=== PATIENT | female | born 1995 | race Caucasian/White ===

== ENCOUNTER 2020-10-19 18:51 | Inpatient (IN) | payer OTHER, SELFPAY ==
[2020-10-19 18:57] VITALS: BP 138/85; PULSE 84; RESP 16; TEMP 36.8; O2SAT 96; BMI 42.0
--- NOTE | 2020-10-19 21:32 | ED_ITS ---
HPI - Psych General Chief Complaint: Psychiatric Symptoms Stated Complaint: crisis Time Seen by Provider: 10/19/20 21:28 Source: patient Mode of arrival: EMS Limitations: no limitations History of Present Illness HPI Narrative: Patient comes to the emergency room from a partial program. It was recommended that the patient comes to the emergency room for further evaluation. Patient states that she has had suicidal thoughts of her life but lately they have been intensifying. Patient states that she does not have a specific plan but has had thought of multiple ways of hurting herself. Patient also states that she needs some medication adjustment, recently started on buspirone. Patient states that the psychiatrist at the partial hospitalization program did not feel comfortable changing her medications. Patient states that things at her home are not good and it is not safe for her to return home MD complaint: suicidal ideation and feels depressed Related Data Allergies Allergy/AdvReac Type Severity Reaction Status Date / Time ibuprofen Allergy Abdominal Verified 10/19/20 18:56 Pain Latex, Natural Rubber Allergy Rash Verified 10/19/20 18:56 fresh fruits Allergy Itching Uncoded 10/19/20 18:56 Review of Systems Review of Systems: Constitutional : No Weight loss, No Fever, No Chills, No Night Sweats, No Fatigue, No Malaise ENT/Mouth : No Hearing loss, No Ear Pain, No Nasal Congestion, No Sinus Pain, No Hoarseness, No sore throat, No Rhinorrhea, No Swallowing Difficulty Eyes: No Eye Pain, No Swelling, No Redness, No Foreign Body, No Discharge, No Vision Changes Cardiovascular : No Chest Pain, No SOB, No Dyspnea on Exertion, No Orthopnea, No Edema, No Palpitations Respiratory : No Cough, No Sputum, No Wheezing, No Smoke Exposure, No Dyspnea Gastrointestinal : No Nausea, No Vomiting, No Diarrhea, No Constipation, No abdominal Pain, No Hematochezia, No Melena Genitourinary : no irregular bleeding, No Dysuria, No Urinary Frequency, No Hematuria, No Urinary Incontinence, No Urgency, No Flank Pain, No Urinary Flow Changes, No Hesitancy Musculoskeletal : No joint pain, No Myalgias, No Joint Swelling Skin : No Skin Lesions, No rash Neuro : No Weakness, No Numbness, No Paresthesias, No Loss of Consciousness, No Dizziness, No Headache Psych : No anxiety, complaining of depression and suicidal ideation, unable to return home due to home situation. Heme/Lymph: No Bruising, No Bleeding,No Lymphadenopathy Endocrine : No Polyuria, No Polydipsia, No Temperature Intolerance [facility] Past Medical History Medical History (Updated 10/19/20 @ 21:34 by Tamy Martinez MD) Asthma Depression Leigh-Danlos disease Social History Social History Alcohol intake: never Smoking Status: Current every day smoker Smoked in Last 30 Days: Yes Use of substances other than those prescribed or required for medical reasons: Yes Substance Use Type: Painkillers and Prescription Drugs Substance Use Type Other:: oxycodone (7 years ago) Advance Directives: No Advance Directives Information Provided: No Physical Exam Vital Signs: Vital Signs: Last Vital Signs Temp 98.3 F 10/19/20 18:57 Pulse 84 10/19/20 18:57 Resp 16 10/19/20 18:57 BP 138/85 10/19/20 18:57 Pulse Ox 96 10/19/20 18:57 Body Mass Index 42.0 Appearance: Alert. Oriented X3. No acute distress. Calm, cooperative Eyes: Pupils equal, round and reactive to light. ENT: Pharynx normal. Neck: Normal inspection. Neck supple. No lymph nodes noted. No crepitus CVS: Normal heart rate and rhythm. Pulses normal. Normal S1 and S2 Respiratory: No respiratory distress. Breath sounds normal. No Wheezing. No rales Abdomen: Soft and nontender. No rigidity. No distention. good BS x4 Skin: Skin warm and dry. Normal skin color. Normal skin turgor. Extremities: No lower extremity edema. No lower extremity edema. No Lacerations. No Rash Neuro: Oriented X 3. No motor deficit. No sensory deficit. Moving all extermities. No slurred speech. Psych: Normal speech, calm, cooperative
--- NOTE | 2020-10-19 22:01 | PC.NURSE ---
bio medical technician to obtain UA.
[2020-10-19 22:35] LABS: Glucose Urine UA NEG (NEG); Leukocyte Esterase Urine NEG (NEG); Nitrite Urine NEG (NEG); Specific Gravity - Urine 1.025 (1.005-1.025); UPreg QC Valid YES; Urine Blood NEG (NEG); Urine Ketones 5 MG/DL (NEG); Urine Pregnancy NEGATIVE (NEGATIVE); Urine Protein NEG (NEG-TRACE)
[2020-10-19 22:36] LABS: Appearance Urine CLEAR; Color Urine YELLOW
--- NOTE | 2020-10-19 23:27 | MHC.CARE ---
CARE Team completes evaluation, with dispo for sect 12 bedsearch. Pt is non binary and goes by Cordell, using they/them pronouns. Full assessment to follow.
[2020-10-19 23:28] LABS: Amphetamine Screen Urine Not Detected (Not Detect); Barbiturates, Urine Not Detected (Not Detect); Benzodiazepines Screen Urine Not Detected (Not Detect); Cannabinoid Screen Urine POSITIVE (Not Detect); Cocaine Screen Urine Not Detected (Not Detect); Opiate Screen Urine Not Detected (Not Detect); Phencyclidine Screen Urine Not Detected (Not Detect)
[2020-10-19] MEDS: hydrOXYzine HCL 50 MG TABLET PO (23:41)
[2020-10-20 00:15] VITALS: BP 112/73; PULSE 81; RESP 16; TEMP 36.2; O2SAT 97
--- NOTE | 2020-10-20 00:41 | PC.NURSE ---
Patient just got transferred from main ED, gait intact, no distress reported, calm and pleasant, med rec completed by discussing with patient, compliant with covid swab/pending result, patient snacked and refreshed with drink, will continue to monitor.
[2020-10-20 00:42] LABS: COVID-19 Test Negative (Negative)
--- NOTE | 2020-10-20 07:13 | PC.NURSE ---
Report received from Arcenio RN- Pt resting, resp unlabored.
--- NOTE | 2020-10-20 10:19 | PC.NURSE ---
Pt resting, resp unlabored.
--- NOTE | 2020-10-20 10:31 | P.CNPS_ITS ---
History of Present Illness Date of Service: 10/20/20 Chief Complaint: crisis Reason for Consult: assess need for Lamictal Requesting physician: Tamy Martinez Discussed with referring provider: No Sources of Information: patient interviewed and chart reviewed HPI Narrative: Pt prefers to be called Jonathon and goes by pro-noun they. Station Supervisor consulted to assess need for Lamictal Pt reports not taking Lamictal for past 5 days. Jonathon reports taking this medication at 200mg for past year and that it has been only minimally effective. While they has some ambivalence about restarting this med, Jonathon They is pretty sure it should be discontinued. Jonathon reports they presented to ED for help with medication change in safe environment. Station Supervisor reviewed risks/side-effects of Lamictal, including SJ and need for controlled titration if been off med for 2 days; patient knows and understands risk and does not want to restart Lamictal at this time. Medical Evaluation Reviewed: Yes [facility] Medical History (Updated 10/19/20 @ 21:34 by Tamy Martinez MD) Asthma Depression Leigh-Danlos disease Diagnostics Vital Signs (24Hr): Vital Signs - 24 hr 10/19/20 18:57 10/20/20 00:15 Temperature 98.3 F 97.2 F Pulse Rate 84 81 Respiratory Rate 16 16 Blood Pressure 138/85 112/73 Pulse Oximetry 96 97 Body Mass Index 42.0 Labs Results: 10/20/20 10:57 10/20/20 10:57 Labs: Laboratory Results - last 48 hr 10/19/20 10/19/20 10/19/20 22:02 22:02 22:02 Urine Color YELLOW Urine Appearance CLEAR Urine pH 7.0 Ur Specific [place] 1.025 Urine Protein NEG Urine Glucose (UA) NEG Urine Ketones 5 Urine Blood NEG Urine Nitrite NEG Ur Leukocyte Esterase NEG Urine Test NEGATIVE Urine Opiates Screen Not Detected Ur Barbiturates Screen Not Detected Ur Phencyclidine Scrn Not Detected Ur Amphetamines Screen Not Detected U Benzodiazepines Scrn Not Detected Urine Cocaine Screen Not Detected U Marijuana (THC) Screen POSITIVE H COVID-19 ([facility]) COVID-19 Clin Com 10/20/20 00:00 Urine Color Urine Appearance Urine pH Ur Specific [place] Urine Protein Urine Glucose (UA) Urine Ketones Urine Blood Urine Nitrite Ur Leukocyte Esterase Urine Test Urine Opiates Screen Ur Barbiturates Screen Ur Phencyclidine Scrn Ur Amphetamines Screen U Benzodiazepines Scrn Urine Cocaine Screen U Marijuana (THC) Screen COVID-19 ([facility]) Negative COVID-19 Clin Com See Note Mental Status Exam Mental Status Exam Patient Appearance: Unkempt (however, just waking up from sleep) Patient Orientation: Person, Place, Time and Situation Level of Consciousness: Awake and Appropriate Patient Behavior: Appropriate and Good Eye Contact Mood Description: Depressed Affect Description: Calm Ability to Follow Directions: Fair Speech Pattern: Clear and Appropriate Thought Process: Intact and Linear Thought Content: positive for Intact Judgement: Fair Medications Medications Current Medications Generic Name Dose Route Start Last Admin Trade Name Freq PRN Reason Stop Dose Admin Lorazepam 2 mg 10/20/20 08:45 Lorazepam 1 Mg Tablet PO Q6H PRN anxiety Allergies Allergies Allergy/AdvReac Type Severity Reaction Status Date / Time ibuprofen Allergy Abdominal Verified 10/19/20 18:56 Pain Latex, Natural Rubber Allergy Rash Verified 10/19/20 18:56 fresh fruits Allergy Itching Uncoded 10/19/20 18:56 Assessment & Plan Impression Pt is a 25 yo person, who goes by name of Jonathon and uses pronoun they Pt has hx of depression and presents for medication change in safe environment having been off Lamictal for 5 days. Patient has some ambivalence about restarting this med but does not want to restart it at this time. Given that Lamictal requires a prolonged titration, fha underwriter agrees that it is best to leave it discontinued for now and allow patient more time to discuss this further with her primary team. dx: MDD Plan: Discontinue Lamictal Greater than 50% of the session was spent on counseling and/or coordination of care
[2020-10-20 11:05] LABS: MANUAL DIFF FLAG NO
[2020-10-20 11:12] LABS: Basophils Percent Auto 0.5 % (0-2); Eosinophils Absolute Auto 0.1 X10*3/uL (0.0-0.4); Hematocrit 40.5 % (37-47); Hemoglobin 13.5 g/dl (12.0-16.0); Imm Gran Abs Auto 0.02 X10*3/uL (0.00-0.03); Imm Gran Pct Auto 0.3 % (0.0-0.4); Lymphocytes Absolute Auto 2.1 X10*3/uL (1.2-4.9); Lymphocytes Percent Auto 32.9 % (20-40); Mean Corpuscular HGB Conc 33.3 g/dl (31.0-35.0); Mean Corpuscular Hemoglobin 28.4 pg (27.0-33.0); Mean Corpuscular Volume 85.1 fL (80-98); Mean Platelet Volume 9.8 fL (9.4-12.3); Monocytes Absolute Auto 0.4 X10*3/uL (0.1-1.2); Monocytes Percent Auto 6.5 % (2-11); Neutrophils Absolute Auto 3.7 X10*3/uL (2.0-8.3); Neutrophils Percent Auto 57.8 % (45-73); Platelet Count 343 X10*3/uL (160-400); Red Blood Count 4.76 X10*6/uL (4.20-5.50); Red Cell Distribution Width 12.5 % (11.0-16.0); White Blood Count 6.4 X10*3/uL (4.8-10.8)
[2020-10-20 11:40] LABS: Ethanol < 10 mg/dL
[2020-10-20 11:41] LABS: Alanine Aminotransferase 19 U/L (0-31); Albumin Level 3.9 g/dL (3.5-5.0); Alkaline Phosphatase 70 U/L (39-117); Anion Gap 12 (12-20); Aspartate Amino Transferase 15 U/L (5-31); Bilirubin Total < 0.2 mg/dL (0.0-1.0); Blood Urea Nitrogen 12 mg/dL (9-16); Calcium 8.7 mg/dL (8.4-10.2); Carbon Dioxide 24 mmol/L (22-29); Chloride 108 mmol/L (96-108); Creatinine Clr Calc Pharmacy 174.9; Estimated Glomerular Filt Rate > 60; Glucose Random 109 mg/dL (60-115); Potassium 3.8 mmol/L (3.3-5.1); Sodium 140 mmol/L (135-145); Total Protein 6.3 g/dL (6.5-8.0)
[2020-10-20 11:52] LABS: Acetaminophen LAB < 1 mcg/mL (<30); Salicylate < 5.0 mg/dL (15-30)
--- NOTE | 2020-10-20 11:52 | PC.NURSE ---
Pt resting currently- awakened for labs, cooperative w/ care, unsure at this time how she is feeling emotionally, no concerns reported.
[2020-10-20 14:04] VITALS: BP 130/63; PULSE 89; RESP 20; TEMP 36.4; O2SAT 97
--- NOTE | 2020-10-20 14:28 | PC.NURSE ---
Report given to FAM Buckner on [facility]
--- NOTE | 2020-10-20 16:21 | PC.NURSE ---
Pt resting, resp unlabored.
--- NOTE | 2020-10-20 17:45 | PC.NURSE ---
Pt aware that they will be transferred to [facility] shortly, CARE team in to initiate process.
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
[2020-10-20 20:15] VITALS: BP 120/63; PULSE 81; RESP 16; TEMP 36.4; O2SAT 98
[2020-10-20] MEDS: busPIRone HCl 5 MG TABLET 7.5 MG PO (20:59)
[2020-10-20] MEDS: hydrOXYzine HCL 25 MG TABLET PO (21:38)
[2020-10-21 06:00] VITALS: BP 115/53; PULSE 70; RESP 18; TEMP 36.4; O2SAT 97
[2020-10-21] MEDS: busPIRone HCl 5 MG TABLET 7.5 MG PO ×2 (09:52→20:37)
[2020-10-21 17:25] LABS: Cholesterol 178 mg/dL; HDL Cholesterol 43 mg/dL; LDL Cholesterol Calculated 113 mg/dl; Triglycerides 113 mg/dL
[2020-10-21 17:42] LABS: Estimated Average Glucose 94 mg/dL; Hemoglobin A1c % 4.9 %
[2020-10-21 17:46] LABS: Thyroid Stimulating Hormone 0.96 uIU/mL (0.32-4.0)
[2020-10-21 19:25] VITALS: BP 116/62; PULSE 76; TEMP 36.6
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
[2020-10-21] MEDS: OLANZapine 5 MG TABLET PO (20:37)
[2020-10-21] MEDS: Lithium Carbonate 300 MG CAPSULE PO (20:43)
[2020-10-21] MEDS: hydrOXYzine HCL 25 MG TABLET PO (22:21)
--- NOTE | 2020-10-22 00:19 | PC.NURSE ---
Orthostatic blood pressure done at 1630: Laying: BP 130/64, P 75 Sitting: BP 137/71, P 75 Standing: BP 133/69, P 103 Pt said experienced no dizziness during assessment. Pt rcvd education about taking more time with positional changes if experiencing dizziness.
[2020-10-22 06:35] VITALS: BP 116/57; PULSE 59; RESP 18; TEMP 37.1; O2SAT 96
[2020-10-22] MEDS: busPIRone HCl 5 MG TABLET 7.5 MG PO ×2 (09:34→21:38)
[2020-10-22 16:25] VITALS: BP 115/55; PULSE 74; TEMP 36.8
--- NOTE | 2020-10-22 19:30 | HO.PSYCHPN ---
Subjective Subjective Date of Service: 10/22/20 Reason For Visit: Bipolar disorder Subjective Notes: Conditional Voluntary Interim History: Pt not available today on rounds. Tolerated initial dosing of [place], Olanzapine which she chose secondary to evidence of efficacy. Serious about this treatment intervention. Medication Compliance: Yes Side effects from medications: No Attending Groups: Yes Review of Systems Review of Systems Yes all other systems are reviewed and are negative Reports behavioral changes Psychiatric: Reports behavioral changes, Reports depression, Reports mood swings and Reports suicidal ideation Mental Status Exam Mental Status Exam Patient Appearance: Appropriate Patient Orientation: Person, Place, Time and Situation Level of Consciousness: Alert Patient Behavior: Appropriate and Guarded Mood Description: Depressed and Anxious Affect Description: Flat Patient Cognition Impaired: No Ability to Follow Directions: Good Speech Pattern: Spontaneous Speech Memory Description: Intact Hallucinations: None Delusions: Not Present Thought Process: Intact Thought Content: positive for Intact and positive for Suicidal Ideation Depressive Symptoms: Increased Anxiety Judgement: Fair Diagnostics Vital Signs (24Hr): Vital Signs - 24 hr 10/22/20 06:35 Temperature 98.7 F Pulse Rate 59 Respiratory Rate 18 Blood Pressure 116/57 L Pulse Oximetry 96 Body Mass Index 42.0 Labs Results: 10/20/20 10:57 10/20/20 10:57 Labs: Laboratory Results - last 48 hr 10/21/20 10/21/20 16:48 16:48 Estimat Average Glucose 94 Hemoglobin A1c % 4.9 Triglycerides 113 Cholesterol 178 LDL Cholesterol, Calc 113 HDL Cholesterol 43 25-OH Vitamin D Total 23.0 TSH 0.96 Medications Medications Current Medications Generic Name Dose Route Start Last Admin Trade Name Freq PRN Reason Stop Dose Admin Acetaminophen 650 mg 10/20/20 20:55 Acetaminophen 325 Mg Tablet PO Q6H PRN Headache/Pain Mild Scale (1-3) Al Hydroxide/Mg Hydroxide 30 ml 10/20/20 20:55 Magnesium Hydrox/Alum Hydrox 30 Ml Oral.Susp PO Q6H PRN Heartburn/Nausea Albuterol Sulfate 2 puff 10/20/20 17:19 Albuterol Sulfate 90 Mcg 8 Gm Inhaler INHALE Q4H PRN Wheezing Buspirone HCl 7.5 mg 10/20/20 21:00 10/22/20 09:34 Buspirone Hcl 5 Mg Tablet PO 7.5 mg BID ABEL Administration Hydroxyzine HCl 25 mg 10/20/20 20:55 10/21/20 22:21 Hydroxyzine Hcl 25 Mg Tablet PO 25 mg BEDTIME PRN Administration Anxiety [place] Carbonate 300 mg 10/21/20 21:00 10/21/20 20:43 [place] Carbonate 300 Mg Capsule PO 300 mg BEDTIME ABEL Administration Lorazepam 2 mg 10/20/20 08:45 Lorazepam 1 Mg Tablet PO Q6H PRN anxiety Magnesium Hydroxide 30 ml 10/20/20 20:55 Milk Of Magnesia 30 Ml Oral.Susp PO DAILY PRN Constipation Olanzapine 5 mg 10/21/20 21:00 10/21/20 20:37 Olanzapine 5 Mg Tablet PO 5 mg BEDTIME ABEL Administration Trazodone HCl 50 mg 10/20/20 20:55 Trazodone Hcl 50 Mg Tablet PO BEDTIME PRN Insomnia Allergies Allergies Allergy/AdvReac Type Severity Reaction Status Date / Time ibuprofen Allergy Abdominal Verified 10/19/20 18:56 Pain Latex, Natural Rubber Allergy Rash Verified 10/19/20 18:56 fresh fruits Allergy Itching Uncoded 10/19/20 18:56 Assessment & Plan Assessment & Plan (1) PTSD (post-traumatic stress disorder): Status: Acute Code(s): F43.10 - Post-traumatic stress disorder, unspecified Assessment and Plan: Pt discussed a long history with several attempts to take her life. Medications discussed. Pt requests we use agents that are the most effective on suicidality and mood stability as she feels she needs to be a stable presence in the family as is . (2) Bipolar I disorder: Status: Acute Code(s): F31.9 - Bipolar disorder, unspecified Assessment and Plan: Continue [place] 300 mg HS Continue Olanzapine 5 mg HS Discuss titration as tolerated. Greater than 50% of the session was spent on counseling and/or coordination of care Reason for contiued inpatient stay Substantial Risk for: harm to self, inability to function, rapid decompensation and med/psych decompensation
[2020-10-22] MEDS: OLANZapine 5 MG TABLET PO (21:39)
[2020-10-22] MEDS: Lithium Carbonate 300 MG CAPSULE PO (21:40)
[2020-10-22] MEDS: hydrOXYzine HCL 25 MG TABLET PO (22:52)
[2020-10-23 04:09] LABS: Vitamin B12 310 pg/mL (200-900)
[2020-10-23 06:00] VITALS: BP 115/56; PULSE 57; RESP 16; TEMP 36.4; O2SAT 96
[2020-10-23] MEDS: busPIRone HCl 5 MG TABLET 7.5 MG PO (10:00)
[2020-10-23 18:00] VITALS: BP 120/59; PULSE 86; TEMP 36.9
[2020-10-23] MEDS: OLANZapine 5 MG TABLET PO (21:16)
[2020-10-23] MEDS: Lithium Carbonate 300 MG CAPSULE PO (21:16)
[2020-10-23] MEDS: busPIRone HCl 10 MG TABLET 15 MG PO (21:16)
--- NOTE | 2020-10-23 21:37 | P.PNPSI_ITS ---
Subjective Subjective Date of Service: 10/23/20 Reason For Visit: Bipolar disorder Subjective Notes: Conditional Voluntary Interim History: Tolerating [place]/Olanzapine Discussed buspirone titration. Reports increase in anxiety at night Feeling great pressure to be stable to manage current life events at home and be a fully participating member of her family. brought in several pictures of their child which pt has on her desk to help keep her on point. Medication Compliance: Yes Side effects from medications: No Attending Groups: Yes Review of Systems Review of Systems Yes all other systems are reviewed and are negative Psychiatric: Reports anxiety, Reports depression, Reports difficulty concentr ating, Reports hopelessness, Reports irritability and Reports suicidal ideation Mental Status Exam Mental Status Exam Patient Appearance: Appropriate Patient Orientation: Person, Place, Time and Situation Level of Consciousness: Alert Patient Behavior: Appropriate, Talkative, Cooperative, Anxious and Good Eye Contact Mood Description: Depressed and Anxious Affect Description: Flat Patient Cognition Impaired: No Ability to Follow Directions: Good Speech Pattern: Spontaneous Speech Memory Description: Intact Hallucinations: None Delusions: Not Present Thought Process: Intact, Rumination and Goal Oriented Thought Content: positive for Intact and positive for Goal Oriented Depressive Symptoms: Increased Anxiety and Low Self Esteem Judgement: Fair Diagnostics Vital Signs (24Hr): Vital Signs - 24 hr 10/23/20 06:00 10/23/20 18:00 Temperature 97.6 F 98.4 F Pulse Rate 57 86 Respiratory Rate 16 Blood Pressure 115/56 L 120/59 L Pulse Oximetry 96 Body Mass Index 42.0 Labs Results: 10/20/20 10:57 10/20/20 10:57 Labs: Laboratory Results - last 48 hr 10/21/20 16:48 Vitamin B12 310 Folate 11.0 Medications Medications Current Medications Generic Name Dose Route Start Last Admin Trade Name Freq PRN Reason Stop Dose Admin Acetaminophen 650 mg 10/20/20 20:55 Acetaminophen 325 Mg Tablet PO Q6H PRN Headache/Pain Mild Scale (1-3) Al Hydroxide/Mg Hydroxide 30 ml 10/20/20 20:55 Magnesium Hydrox/Alum Hydrox 30 Ml Oral.Susp PO Q6H PRN Heartburn/Nausea Albuterol Sulfate 2 puff 10/20/20 17:19 Albuterol Sulfate 90 Mcg 8 Gm Inhaler INHALE Q4H PRN Wheezing Buspirone HCl 15 mg 10/23/20 21:00 10/23/20 21:16 Buspirone Hcl 10 Mg Tablet PO 15 mg BID ABEL Administration Hydroxyzine HCl 25 mg 10/20/20 20:55 10/22/20 22:52 Hydroxyzine Hcl 25 Mg Tablet PO 25 mg BEDTIME PRN Administration Anxiety [place] Carbonate 300 mg 10/21/20 21:00 10/23/20 21:16 [place] Carbonate 300 Mg Capsule PO 300 mg BEDTIME ABEL Administration Lorazepam 2 mg 10/20/20 08:45 Lorazepam 1 Mg Tablet PO Q6H PRN anxiety Magnesium Hydroxide 30 ml 10/20/20 20:55 Milk Of Magnesia 30 Ml Oral.Susp PO DAILY PRN Constipation Olanzapine 5 mg 10/21/20 21:00 10/23/20 21:16 Olanzapine 5 Mg Tablet PO 5 mg BEDTIME ABEL Administration Trazodone HCl 50 mg 10/20/20 20:55 Trazodone Hcl 50 Mg Tablet PO BEDTIME PRN Insomnia Allergies Allergies Allergy/AdvReac Type Severity Reaction Status Date / Time ibuprofen Allergy Abdominal Verified 10/19/20 18:56 Pain Latex, Natural Rubber Allergy Rash Verified 10/19/20 18:56 fresh fruits Allergy Itching Uncoded 10/19/20 18:56 Assessment & Plan Assessment & Plan (1) PTSD (post-traumatic stress disorder): Status: Acute Code(s): F43.10 - Post-traumatic stress disorder, unspecified Assessment and Plan: Pt discussed a long history with several attempts to take her life. Medications discussed. Pt requests we use agents that are the most effective on suicidality and mood stability as she feels she needs to be a stable presence in the family as is . Today she is reading parenting books and taking notes regarding effective, safe, positive parenting. (2) Bipolar I disorder: Status: Acute Code(s): F31.9 - Bipolar disorder, unspecified Assessment and Plan: Continue [place] 300 mg HS Continue Olanzapine 5 mg HS Increase Buspirone to 15 mg bid Discuss titration as tolerated. Greater than 50% of the session was spent on counseling and/or coordination of care Reason for contiued inpatient stay Substantial Risk for: harm to self, inability to function, rapid decompensation and med/psych decompensation
[2020-10-24 06:00] VITALS: BP 100/65; PULSE 68; TEMP 35.4
[2020-10-24] MEDS: busPIRone HCl 10 MG TABLET 15 MG PO ×2 (09:26→22:34)
--- NOTE | 2020-10-24 11:03 | P.PNPSI_ITS ---
Subjective Subjective Date of Service: 10/24/20 Reason For Visit: Bipolar disorder Interim History: The patient denied new side effects with the recent regimen of Lithum and Zyprexa. No oversedation with Zyprexa, no tremors or any side effect with [place] 300 mg. We discussed options and they agreed to go [place] bid and recheck levels in a few days. Order for [place] level, BMP, TSH and lipid profile oredered for this Friday. Medication Compliance: Yes Side effects from medications: No Attending Groups: Yes Review of Systems Review of Systems Yes all other systems are reviewed and are negative Mental Status Exam Mental Status Exam Patient Appearance: Well Grooomed Patient Orientation: Person, Place, Time and Situation Level of Consciousness: Awake and Appropriate Patient Behavior: Appropriate Mood Description: Calm and Constricted Affect Description: Withdrawn and Appropriate Patient Cognition Impaired: No Ability to Follow Directions: Good Speech Pattern: Clear Memory Description: Intact Hallucinations: None Delusions: Not Present Thought Process: Goal Oriented Thought Content: positive for Intact Judgement: Fair Diagnostics Vital Signs (24Hr): Vital Signs - 24 hr 10/23/20 18:00 10/24/20 06:00 Temperature 98.4 F 95.7 F L Pulse Rate 86 68 Blood Pressure 120/59 L 100/65 Body Mass Index 42.0 Labs Results: 10/20/20 10:57 10/20/20 10:57 Labs: Laboratory Results - last 48 hr 10/21/20 16:48 Vitamin B12 310 Folate 11.0 Medications Medications Current Medications Generic Name Dose Route Start Last Admin Trade Name Freq PRN Reason Stop Dose Admin Acetaminophen 650 mg 10/20/20 20:55 Acetaminophen 325 Mg Tablet PO Q6H PRN Headache/Pain Mild Scale (1-3) Al Hydroxide/Mg Hydroxide 30 ml 10/20/20 20:55 Magnesium Hydrox/Alum Hydrox 30 Ml Oral.Susp PO Q6H PRN Heartburn/Nausea Albuterol Sulfate 2 puff 10/20/20 17:19 Albuterol Sulfate 90 Mcg 8 Gm Inhaler INHALE Q4H PRN Wheezing Buspirone HCl 15 mg 10/23/20 21:00 10/24/20 09:26 Buspirone Hcl 10 Mg Tablet PO 15 mg BID ABEL Administration Hydroxyzine HCl 25 mg 10/20/20 20:55 10/22/20 22:52 Hydroxyzine Hcl 25 Mg Tablet PO 25 mg BEDTIME PRN Administration Anxiety [place] Carbonate 300 mg 10/21/20 21:00 10/23/20 21:16 [place] Carbonate 300 Mg Capsule PO 300 mg BEDTIME ABEL Administration Lorazepam 2 mg 10/20/20 08:45 Lorazepam 1 Mg Tablet PO Q6H PRN anxiety Magnesium Hydroxide 30 ml 10/20/20 20:55 Milk Of Magnesia 30 Ml Oral.Susp PO DAILY PRN Constipation Olanzapine 5 mg 10/21/20 21:00 10/23/20 21:16 Olanzapine 5 Mg Tablet PO 5 mg BEDTIME ABEL Administration Trazodone HCl 50 mg 10/20/20 20:55 Trazodone Hcl 50 Mg Tablet PO BEDTIME PRN Insomnia Allergies Allergies Allergy/AdvReac Type Severity Reaction Status Date / Time ibuprofen Allergy Abdominal Verified 10/19/20 18:56 Pain Latex, Natural Rubber Allergy Rash Verified 10/19/20 18:56 fresh fruits Allergy Itching Uncoded 10/19/20 18:56 Assessment & Plan Assessment & Plan (1) Bipolar I disorder: Status: Acute Code(s): F31.9 - Bipolar disorder, unspecified Assessment and Plan: Increase [place] 300 mg BID Keep Olanzapine 5 mg HS Keep Buspirone to 15 mg bid LITH, BMP, TSH, Lipid for 10/27 (2) PTSD (post-traumatic stress disorder): Status: Acute Code(s): F43.10 - Post-traumatic stress disorder, unspecified Assessment and Plan: Pt discussed a long history with several attempts to take her life. Medications discussed. Pt requests we use agents that are the most effective on suicidality and mood stability as she feels she needs to be a stable presence in the family as is . Today she is reading parenting books and taking notes regarding effective, safe, positive parenting. Greater than 50% of the session was spent on counseling and/or coordination of care Patient educated on: diagnosis and medication risk/benefits Informed Consent: understands Reason for contiued inpatient stay Substantial Risk for: harm to self and rapid decompensation
[2020-10-24] MEDS: Lithium Carbonate 300 MG CAPSULE PO (14:38)
[2020-10-24 16:25] VITALS: BP 99/52; PULSE 75; TEMP 36.6
[2020-10-24] MEDS: OLANZapine 5 MG TABLET PO (22:34)
[2020-10-24] MEDS: hydrOXYzine HCL 25 MG TABLET PO (22:35)
[2020-10-25 06:00] VITALS: BP 114/56; PULSE 65; RESP 16; TEMP 36.2; O2SAT 96
[2020-10-25] MEDS: Lithium Carbonate 300 MG CAPSULE PO ×3 (08:34→20:56)
[2020-10-25] MEDS: busPIRone HCl 10 MG TABLET 15 MG PO ×2 (08:34→20:55)
--- NOTE | 2020-10-25 14:40 | HO.PSYCHPN ---
Subjective Subjective Date of Service: 10/25/20 Reason For Visit: Bipolar disorder Subjective Notes: Conditional Voluntary Interim History: Tolerating Olanzapine/[place]. Will titrate [place] today. DCF meeting with family today, pt anxious about this and outcome. Discussed STM issues- I forget what I am talking about mid sentence Believes this is due to Lyme exposure. Reports sleep is fair, appetite intact, depressive sx present, SI present yet able to contract for safety on the unit. Attempting to focus on moving forward, attempting goal setting for herself, family, parenting, career. States she is attempting a mind shift to benefit herself and family. Stressors are burdensome and she does spend much time with worry and rumination. Hopeful trial will be helpful. Medication Compliance: Yes Side effects from medications: No Attending Groups: Intermittent Review of Systems Review of Systems Yes all other systems are reviewed and are negative (denies) Reports behavioral changes Psychiatric: Reports anxiety, Reports behavioral changes, Reports difficulty concentrating, Reports hopelessness, Reports anhedonia, Reports mood swings and Reports suicidal ideation Mental Status Exam Mental Status Exam Patient Appearance: Appropriate Patient Orientation: Person, Place, Time and Situation Level of Consciousness: Alert Patient Behavior: Guarded, Talkative, Cooperative, Anxious, Distractible and Good Eye Contact Mood Description: Depressed and Anxious Affect Description: Constricted Patient Cognition Impaired: No Ability to Follow Directions: Good Speech Pattern: Spontaneous Speech Memory Description: Intact and Remote Impaired (Hx of [place] which she believes has impaired STM) Hallucinations: None Delusions: Thought Insert/Delete Thought Process: Rumination and Goal Oriented Thought Content: positive for [place], positive for Circumstantial and positive for Goal Oriented Depressive Symptoms: Increased Anxiety, Unhappiness, Thoughts of /Suicide, Low Self Esteem, Loss of Energy and Difficulty Concentrating Judgement: Fair Diagnostics Vital Signs (24Hr): Vital Signs - 24 hr 10/24/20 16:25 10/25/20 06:00 Temperature 97.9 F 97.1 F Pulse Rate 75 65 Respiratory Rate 16 Blood Pressure 99/52 L 114/56 L Pulse Oximetry 96 Body Mass Index 42.0 Labs Results: 10/20/20 10:57 10/20/20 10:57 Medications Medications Current Medications Generic Name Dose Route Start Last Admin Trade Name Freq PRN Reason Stop Dose Admin Acetaminophen 650 mg 10/20/20 20:55 Acetaminophen 325 Mg Tablet PO Q6H PRN Headache/Pain Mild Scale (1-3) Al Hydroxide/Mg Hydroxide 30 ml 10/20/20 20:55 Magnesium Hydrox/Alum Hydrox 30 Ml Oral.Susp PO Q6H PRN Heartburn/Nausea Albuterol Sulfate 2 puff 10/20/20 17:19 Albuterol Sulfate 90 Mcg 8 Gm Inhaler INHALE Q4H PRN Wheezing Buspirone HCl 15 mg 10/23/20 21:00 10/25/20 08:34 Buspirone Hcl 10 Mg Tablet PO 15 mg BID ABEL Administration Hydroxyzine HCl 25 mg 10/20/20 20:55 10/24/20 22:35 Hydroxyzine Hcl 25 Mg Tablet PO 25 mg BEDTIME PRN Administration Anxiety [place] Carbonate 300 mg 10/24/20 14:30 10/25/20 08:34 [place] Carbonate 300 Mg Capsule PO 300 mg BID@0830,1430 ABEL Administration Magnesium Hydroxide 30 ml 10/20/20 20:55 Milk Of Magnesia 30 Ml Oral.Susp PO DAILY PRN Constipation Olanzapine 5 mg 10/21/20 21:00 10/24/20 22:34 Olanzapine 5 Mg Tablet PO 5 mg BEDTIME ABEL Administration Trazodone HCl 50 mg 10/20/20 20:55 Trazodone Hcl 50 Mg Tablet PO BEDTIME PRN Insomnia Allergies Allergies Allergy/AdvReac Type Severity Reaction Status Date / Time ibuprofen Allergy Abdominal Verified 10/19/20 18:56 Pain Latex, Natural Rubber Allergy Rash Verified 10/19/20 18:56 fresh fruits Allergy Itching Uncoded 10/19/20 18:56 Assessment & Plan Assessment & Plan (1) Bipolar I disorder: Status: Acute Code(s): F31.9 - Bipolar disorder, unspecified Assessment and Plan: Increase [place] 300 mg BID Keep Olanzapine 5 mg HS Keep Buspirone to 15 mg bid LITH, BMP, TSH, Lipid for 10/27 (2) PTSD (post-traumatic stress disorder): Status: Acute Code(s): F43.10 - Post-traumatic stress disorder, unspecified Assessment and Plan: Pt discussed a long history with several attempts to take her life. Medications discussed. Pt requests we use agents that are the most effective on suicidality and mood stability as she feels she needs to be a stable presence in the family as is . Today she is reading parenting books and taking notes regarding effective, safe, positive parenting. DCF is meeting with family today and she is anxious regarding the outcome and their recommendations Identifies STM problems due to hx Lyme-?possibly PTSD related as well. Greater than 50% of the session was spent on counseling and/or coordination of care Reason for contiued inpatient stay Substantial Risk for: harm to self, inability to function, rapid decompensation and med/psych decompensation
[2020-10-25 18:00] VITALS: BP 129/66; PULSE 92; TEMP 36.4
[2020-10-25] MEDS: hydrOXYzine HCL 25 MG TABLET PO (20:56)
[2020-10-25] MEDS: OLANZapine 5 MG TABLET PO (20:57)
[2020-10-26 06:00] VITALS: BP 112/59; PULSE 70; RESP 16; TEMP 37.2; O2SAT 98
[2020-10-26 07:00] VITALS: BMI 42.6
[2020-10-26] MEDS: busPIRone HCl 10 MG TABLET 15 MG PO ×2 (08:43→21:14)
[2020-10-26] MEDS: Lithium Carbonate 300 MG CAPSULE PO ×2 (08:43→21:14)
--- NOTE | 2020-10-26 16:21 | HO.PSYCHPN ---
Subjective Subjective Date of Service: 10/26/20 Reason For Visit: Bipolar disorder Subjective Notes: Conditional Voluntary Interim History: Unsure how she is feeling. Tolerating medications, however, with no exposure to current family stress she finds it difficult to evaluate. Will titrate Olanzapine, tentative disharge for 10/27. Denies active SI. DCF hearing is pending Pt/ to move 11/03. Plans to return to [facility] with [facility]. Will need OP referrals. Medication Compliance: Yes Side effects from medications: No Attending Groups: Yes Review of Systems Review of Systems Yes all other systems are reviewed and are negative Reports behavioral changes Psychiatric: Reports abnormal sleep pattern, Reports anxiety, Reports behavioral changes, Reports depression, Reports difficulty concentrating, Reports hopelessness and Reports suicidal ideation Mental Status Exam Mental Status Exam Patient Appearance: Appropriate Patient Orientation: Person, Place, Time and Situation Level of Consciousness: Alert Patient Behavior: Appropriate and Talkative Mood Description: Anxious Affect Description: Constricted Patient Cognition Impaired: No Ability to Follow Directions: Good Speech Pattern: Spontaneous Speech Memory Description: Intact Hallucinations: None Delusions: Not Present Thought Process: Intact Thought Content: positive for Intact, positive for Circumstantial and positive for Suicidal Ideation Depressive Symptoms: Increased Anxiety, Diff. Making Decisions, Increased Irritability, Difficulty Sleeping, Isolating-Friends/Family, Unhappiness, Increased Fatigue, Thoughts of /Suicide, Low Self Esteem and Loss of Energy Judgement: Fair Diagnostics Vital Signs (24Hr): Vital Signs - 24 hr 10/25/20 18:00 10/26/20 06:00 Temperature 97.6 F 98.9 F Pulse Rate 92 70 Respiratory Rate 16 Blood Pressure 129/66 112/59 L Pulse Oximetry 98 Body Mass Index 42.6 Labs Results: 10/20/20 10:57 10/20/20 10:57 Medications Medications Current Medications Generic Name Dose Route Start Last Admin Trade Name Freq PRN Reason Stop Dose Admin Acetaminophen 650 mg 10/20/20 20:55 Acetaminophen 325 Mg Tablet PO Q6H PRN Headache/Pain Mild Scale (1-3) Al Hydroxide/Mg Hydroxide 30 ml 10/20/20 20:55 Magnesium Hydrox/Alum Hydrox 30 Ml Oral.Susp PO Q6H PRN Heartburn/Nausea Albuterol Sulfate 2 puff 10/20/20 17:19 Albuterol Sulfate 90 Mcg 8 Gm Inhaler INHALE Q4H PRN Wheezing Buspirone HCl 15 mg 10/23/20 21:00 10/26/20 08:43 Buspirone Hcl 10 Mg Tablet PO 15 mg BID ABEL Administration Hydroxyzine HCl 25 mg 10/20/20 20:55 10/25/20 20:56 Hydroxyzine Hcl 25 Mg Tablet PO 25 mg BEDTIME PRN Administration Anxiety [place] Carbonate 300 mg 10/25/20 21:00 10/26/20 08:43 [place] Carbonate 300 Mg Capsule PO 300 mg BID ABEL Administration Magnesium Hydroxide 30 ml 10/20/20 20:55 Milk Of Magnesia 30 Ml Oral.Susp PO DAILY PRN Constipation Naproxen 500 mg 10/25/20 15:55 Naproxen 500 Mg Tablet PO Q12H PRN Pain, Mild (Pain Scale 1-3) Olanzapine 10 mg 10/26/20 21:00 Olanzapine 10 Mg Tablet PO BEDTIME ABEL Trazodone HCl 50 mg 10/20/20 20:55 Trazodone Hcl 50 Mg Tablet PO BEDTIME PRN Insomnia Allergies Allergies Allergy/AdvReac Type Severity Reaction Status Date / Time ibuprofen Allergy Abdominal Verified 10/19/20 18:56 Pain Latex, Natural Rubber Allergy Rash Verified 10/19/20 18:56 fresh fruits Allergy Itching Uncoded 10/19/20 18:56 Assessment & Plan Assessment & Plan (1) Bipolar I disorder: Status: Acute Code(s): F31.9 - Bipolar disorder, unspecified Assessment and Plan: [place] 300 mg BID tolerated Increase Olanzapine 10 mg HS Keep Buspirone to 15 mg bid LITH, BMP, TSH, Lipid for 10/27 (2) PTSD (post-traumatic stress disorder): Status: Acute Code(s): F43.10 - Post-traumatic stress disorder, unspecified Assessment and Plan: Pt discussed a long history with several attempts to take her life. Medications discussed. Pt requests we use agents that are the most effective on suicidality and mood stability as she feels she needs to be a stable presence in the family as is . Today she is reading parenting books and taking notes regarding effective, safe, positive parenting. DCF is meeting with family today and she is anxious regarding the outcome and their recommendations Identifies STM problems due to hx Lyme-?possibly PTSD related as well. Greater than 50% of the session was spent on counseling and/or coordination of care Reason for contiued inpatient stay Substantial Risk for: harm to self, inability to function, rapid decompensation and med/psych decompensation
[2020-10-26] MEDS: hydrOXYzine HCL 25 MG TABLET PO (19:06)
[2020-10-26 19:30] VITALS: BP 123/61; PULSE 92; RESP 18; TEMP 36.9; O2SAT 97
[2020-10-26] MEDS: OLANZapine 10 MG TABLET PO (21:14)
[2020-10-27] MEDS: Lithium Carbonate 300 MG CAPSULE PO (09:03)
[2020-10-27] MEDS: busPIRone HCl 10 MG TABLET 15 MG PO (09:03)
[2020-10-27 09:07] LABS: Lithium 0.35 mmol/L (0.60-1.20)
[2020-10-27 09:17] LABS: Anion Gap 13 (12-20); Blood Urea Nitrogen 14 mg/dL (9-16); Calcium 9.5 mg/dL (8.4-10.2); Carbon Dioxide 24 mmol/L (22-29); Chloride 106 mmol/L (96-108); Cholesterol 193 mg/dL; Creatinine Clr Calc Pharmacy 151.5; Estimated Glomerular Filt Rate > 60; Glucose Random 75 mg/dL (60-115); HDL Cholesterol 47 mg/dL; LDL Cholesterol Calculated 131 mg/dl; Potassium 4.2 mmol/L (3.3-5.1); Sodium 139 mmol/L (135-145); Triglycerides 78 mg/dL
[2020-10-27 09:23] LABS: Thyroid Stimulating Hormone 3.86 uIU/mL (0.32-4.0)
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
== END 2020-10-27 11:46 | disposition home or self-care (01) | DRG 753 ==
LOC: HO.ED 23:14 → HO.PM5 10-20 17:18
PROVIDERS: Admitting Provider Psychiatry & Neurology Psychiatry; Emergency Provider Emergency Medicine; Visit Provider Clinical Nurse Specialist Psychiatric/Mental Health, Adult
DX: F31.9 Bipolar disorder, unspecified (principal); R45.851 Suicidal ideations; Z91.14 Patient's other noncompliance with medication regimen; F17.210 Nicotine dependence, cigarettes, uncomplicated; F43.10 Post-traumatic stress disorder, unspecified; Z20.822 Contact with and (suspected) exposure to COVID-19; Z71.6 Tobacco abuse counseling; Z88.6 Allergy status to analgesic agent; Z79.899 Other long term (current) drug therapy
CPT/HCPCS: 36415; 80048; 80053; 80061; 80143; 80178; 80179; 80307; 80320; 81003; 81025; 82306; 82607; 82746; 83036; 84443; 85025; 87635; 99285

== ENCOUNTER 2021-10-17 16:42 | Outpatient (REF) | payer MEDICAID, SELFPAY ==
[2021-10-17 18:03] LABS: Estimated Average Glucose 103 mg/dL; Hemoglobin A1C 120.0752 umol/L; Hemoglobin A1c % 5.2 %
[2021-10-17 18:18] LABS: Alanine Aminotransferase 24 U/L (0-31); Alkaline Phosphatase 66 U/L (39-117); Anion Gap 12 (12-20); Aspartate Amino Transferase 19 U/L (5-31); Bilirubin Total 0.3 mg/dL (0.0-1.0); Blood Urea Nitrogen 9 mg/dL (9-16); Calcium 9.7 mg/dL (8.4-10.2); Carbon Dioxide 26 mmol/L (22-29); Chloride 108 mmol/L (96-108); Cholesterol 166 mg/dL; Estimated Glomerular Filt Rate > 60; Glucose Random 85 mg/dL (60-115); HDL Cholesterol 27 mg/dL; LDL Cholesterol Calculated 111 mg/dl; Potassium 4.7 mmol/L (3.3-5.1); Sodium 141 mmol/L (135-145); Total Protein 7.1 g/dL (6.5-8.0); Triglycerides 144 mg/dL
[2021-10-17 18:39] LABS: Free T4 (Free Thyroxine) 0.88 ng/dL (0.71-1.85); T4 Thyroxine 7.5 ug/dL (4.5-12.0); Thyroid Stimulating Hormone 3.16 uIU/mL (0.32-4.0)
== END 2021-10-17 16:43 | disposition home or self-care (01) ==
LOC: HO.LAB 16:42
PROVIDERS: Visit Provider Registered Nurse
DX: Z79.899 Other long term (current) drug therapy (principal)
CPT/HCPCS: 36415; 80053; 80061; 80178; 83036; 84436; 84439; 84443